=== PATIENT | male | born 1960 | race Caucasian/White ===

== ENCOUNTER → 2022-08-09 07:04 | Outpatient (CLI) | payer OTHER, MEDICAID, SELFPAY ==
[2022-08-09 07:34] LABS: Add Manual Diff / Slide Review NO; Basophils Absolute Auto 100 /uL (0-100); Basophils Percent Auto 1.2 % (0-2); Eosinophils Absolute Auto 100 /uL (0-450); Eosinophils Percent Auto 2.2 % (2-4); Hematocrit 43.1 % (41-53); Hemoglobin 14.5 g/dL (13.5-17.5); Lymphocytes Absolute Auto 1600 /uL (1100-4500); Lymphocytes Percent Auto 25.8 % (25-40); Mean Corpuscular HGB Conc 33.8 % (30-36); Mean Corpuscular Hemoglobin 32.6 PG (26-34); Mean Corpuscular Volume 96.7 fL (80-100); Monocytes Absolute Auto 500 /uL (0-900); Monocytes Percent Auto 8.8 % (3-14); Neutrophils Absolute Auto 3800 /uL (1500-7000); Platelet Count 281 X10^3/uL (150-400); Red Blood Cell Count 4.45 X10^6/uL (4.5-5.9); Red Cell Distribution Width 13.1 % (11.6-14.8); White Blood Cell Count 6.1 X10^3/uL (4.5-11.0)
[2022-08-09 08:27] LABS: Alanine Aminotransferase 35 IU/L (<50); Albumin 4.2 g/dL (3.5-5.0); Albumin Globulin Ratio 1.6 (1.0-2.8); Alkaline Phosphatase 65 U/L (38-126); Aspartate Aminotransferase 35 IU/L (17-59); BUN Creatinine Ratio 20.6 (6-22); Bilirubin Total 1.4 mg/dL (0.2-1.3); Blood Urea Nitrogen 21 mg/dL (9-20); Calcium 9.5 mg/dL (8.4-10.2); Carbon Dioxide 28 mmol/L (22-32); Chloride 101 mmol/L (98-107); Cholesterol 151 mg/dL (140-199); Estimated Glomerular Filt Rate > 60 mL/min (>60); Globulin 2.7 g/dL (1.7-4.1); Glucose 100 mg/dL (80-110); HDL Cholesterol 71 mg/dL (40-60); HEMOLYSIS < 15 (0-50); LDL Cholesterol Calculated 71 mg/dL (<100); Potassium 4.9 mmol/L (3.4-5.1); Sodium 137 mmol/L (137-145); Total Protein 6.9 g/dL (6.3-8.2); Triglycerides 43 mg/dL (35-150)
[2022-08-09 08:57] LABS: Prostate Specific Antigen 0.577 ng/mL (0.10-4.00)
== END ==
PROVIDERS: PCP Family Medicine; Referring Provider Family Medicine; Visit Provider Family Medicine
DX: E78.2 Mixed hyperlipidemia (principal); I10 Essential (primary) hypertension; N40.1 Benign prostatic hyperplasia with lower urinary tract symptoms; N52.01 Erectile dysfunction due to arterial insufficiency; R35.1 Nocturia; Z86.010 Personal history of colon polyps; Z86.79 Personal history of other diseases of the circulatory system
CPT/HCPCS: 36415; 80053; 80061; 84153; 85025

== ENCOUNTER → 2024-08-14 07:03 | Outpatient (CLI) | payer MEDICARE, OTHER, SELFPAY ==
[2024-08-14 07:31] LABS: Add Manual Diff / Slide Review NO; Basophils Absolute Auto 100 /uL (0-100); Basophils Percent Auto 0.9 % (0-2); Eosinophils Absolute Auto 200 /uL (0-450); Eosinophils Percent Auto 2.8 % (2-4); Hematocrit 40.3 % (41-53); Hemoglobin 13.5 g/dL (13.5-17.5); Lymphocytes Absolute Auto 1700 /uL (1100-4500); Lymphocytes Percent Auto 27.9 % (25-40); Mean Corpuscular HGB Conc 33.5 % (30-36); Mean Corpuscular Hemoglobin 32.6 PG (26-34); Mean Corpuscular Volume 97.5 fL (80-100); Monocytes Absolute Auto 500 /uL (0-900); Monocytes Percent Auto 8.8 % (3-14); Neutrophils Absolute Auto 3600 /uL (1500-7000); Neutrophils Percent Auto 59.6 % (50-75); Platelet Count 293 X10^3/uL (150-400); Red Blood Cell Count 4.13 X10^6/uL (4.5-5.9); Red Cell Distribution Width 13.7 % (11.6-14.8)
[2024-08-14 08:16] LABS: Alanine Aminotransferase 33 IU/L (<50); Albumin 4.1 g/dL (3.5-5.0); Albumin Globulin Ratio 1.9 (1.0-2.8); Alkaline Phosphatase 57 U/L (38-126); Aspartate Aminotransferase 40 IU/L (17-59); BUN Creatinine Ratio 18.2 (6-22); Bilirubin Total 0.7 mg/dL (0.2-1.3); Blood Urea Nitrogen 18 mg/dL (9-20); Calcium 9.6 mg/dL (8.4-10.2); Carbon Dioxide 26 mmol/L (22-32); Chloride 106 mmol/L (98-107); Cholesterol 134 mg/dL (140-199); Estimated Glomerular Filt Rate > 60 mL/min (>60); Globulin 2.2 g/dL (1.7-4.1); Glucose 108 mg/dL (80-110); HDL Cholesterol 70 mg/dL (40-60); HEMOLYSIS < 15 (0-50); LDL Cholesterol Calculated 52 mg/dL (<100); Potassium 4.2 mmol/L (3.4-5.1); Sodium 138 mmol/L (137-145); Total Protein 6.3 g/dL (6.3-8.2); Triglycerides 58 mg/dL (35-150)
[2024-08-14 08:40] LABS: Prostate Specific Antigen Scrn 0.809 ng/mL (0.1-4.0)
== END ==
PROVIDERS: PCP Family Medicine; Referring Provider Family Medicine; Visit Provider Family Medicine
DX: Z00.00 Encounter for general adult medical examination without abnormal findings (principal); E78.5 Hyperlipidemia, unspecified; Z12.5 Encounter for screening for malignant neoplasm of prostate; I10 Essential (primary) hypertension; N40.0 Benign prostatic hyperplasia without lower urinary tract symptoms
CPT/HCPCS: 36415; 80053; 80061; 85025; G0103

== ENCOUNTER → 2024-10-06 07:30 | Outpatient (CLI) | payer MEDICARE, OTHER, SELFPAY ==
--- NOTE | 2024-10-06 07:32 | DI.ECHO.S_ITS ---
[facility]---------+ [facility] : : [id number] : [place] [address] : : [id number] : : Phone: [phone] Echocardiogram Report + + :Name: MIRNA GOVEA Study Date: 10/06/2024 Height: 73 in : :[facility] ReadingLocation: Weight: 210 lb : : Gender: Male BSA: 2.2 m2 : :: 1960 Age: 64 yrs BP: 151/95 mmHg: :Reason For Study: CHEST PAIN : :Ordering Physician: YA, : :JOANNE Cordova Performed By: Libia Hobbs : :Referring: JOANNE WOODS : + + Interpretation Summary The ejection fraction is estimated to be 60-65%. Diastolic parameters suggest probable normal left ventricular diastolic function and normal filling pressures. The right ventricle is normal in size and function. There is mild mitral regurgitation. There is mild tricuspid regurgitation. The right ventricular systolic pressure is estimated to be at least 26 mmHg based on an estimated right atrial pressure of 3 mm Hg. The ascending aorta is mildly enlarged, 4.2 cm. Procedure: A two-dimensional transthoracic echocardiogram with color flow and Doppler was performed. The study quality was technically adequate. There is no prior echocardiogram noted for this patient. The patient was in sinus rhythm with heart rates between 62-68 bpm during the exam. Left Ventricle: The left ventricle is normal in size and wall thickness. The ejection fraction is estimated to be 60-65%. Diastolic parameters suggest probable normal left ventricular diastolic function and normal filling pressures. Right Ventricle: The right ventricle is normal in size and function. Atria: The left atrial size is normal. Right atrial size is normal. There is no Doppler evidence for an interatrial shunt. Mitral Valve: The mitral valve leaflets appear to open well. The mitral valve leaflets appear mildly thickened, but open well. There is mild mitral regurgitation. Aortic Valve: The aortic valve is trileaflet. The aortic valve opens well. There is no aortic valve stenosis. There is trace aortic regurgitation. Tricuspid Valve: The tricuspid valve leaflets are thin and pliable. There is mild tricuspid regurgitation. The right ventricular systolic pressure is estimated to be at least 26 mmHg based on an estimated right atrial pressure of 3 mm Hg. Pulmonic Valve: The pulmonic valve is not well visualized. There is mild pulmonic regurgitation. Great Vessels: The aortic root is normal size. The ascending aorta is mildly enlarged. The IVC is of normal diameter and collapses greater than 50% with a sniff. This suggests a low right atrial pressure of 3 mm Hg. Pericardium/ Pleura There is no pericardial effusion. There is no pleural effusion. MMode/2D Measurements & Calculations LVIDd: 5.7 cm LVOT diam: 2.2 cm LVIDs: 4.0 cm Ao root diam: 4.2 cm FS: 30.1 % asc Aorta Diam: 4.2 cm EPSS: 0.67 cm Ao Arch Diam (Prox Trans): 3.1 cm IVSd: 1.3 cm LVPWd: 1.0 cm LV cormier. diameter/BSA (cm/m^2): 2.6 LV sys. diameter/BSA (cm/m^2): 1.8 LA A2 area: 21.7 cm2 RA long axis: 6.2 cm LA A4 area: 19.5 cm2 RA area: 19.1 cm2 LA length (vol): 5.7 cm RA vol: 49.7 ml LA vol: 63.1 ml RA : 22.6 ml/m2 LA vol index: 28.7 ml/m2 IVC diam: 1.9 cm RVD1 (basal): 3.9 cm RVD2 (mid): 2.9 cm TAPSE: 1.9 cm Doppler Measurements & Calculations Ao V2 max: 149.6 cm/sec LVOT Max Miguel A: 136.0 cm/sec Ao V2 mean: 108.0 cm/sec LV V1 max P.4 mmHg Ao max P.0 mmHg LV V1 VTI: 26.4 cm Ao mean P.1 mmHg REGULO(I,D): 3.1 cm2 Ao V2 VTI: 32.1 cm REGULO(V,D): 3.4 cm2 sev ratio: 0.82 REGULO indexed to BSA (cm^2/m^2): 1.4 AI P1/2t: 951.6 msec AI dec slope: 140.9 cm/sec2 MV E max miguel a: 63.1 cm/sec TR max miguel a: 242.0 cm/sec MV A max miguel a: 49.6 cm/sec TR max P.4 mmHg MV E/A: 1.3 PA V2 max: 88.8 cm/sec Med Peak E' Miguel A: 7.0 cm/sec PA V2 mean: 63.1 cm/sec E/E' med: 9.0 PA mean P.8 mmHg Lat Peak E' Miguel A: 10.0 cm/sec PA pr(Accel): 31.5 mmHg E/E' lat: 6.3 E/e' average: 7.6 MV dec time: 0.19 sec SV(LVOT): 99.7 ml Reading Physician:05:14 PM
--- NOTE | 2024-10-07 07:37 | DI.NM.S_ITS ---
DATE OF SERVICE: 10/06/2024 NUCLEAR CARDIOLOGY MYOCARDIAL PERFUSION STUDY PROCEDURE: Exercise treadmill stress and rest myocardial perfusion imaging with gating to assess ejection fraction and regional wall motion. ORDERING PROVIDER: Joanne Woods M.D. INDICATIONS: The patient is a 64-year-old male with known modest coronary artery disease with recent sporadic exertional chest discomfort. CARDIAC STRESS: The patient was able to exercise for 10 minutes 59 seconds on a standard Fred protocol, but reported that he could have gone farther, suggesting excellent exercise capacity with an JATINDER of at least -47%. He had a normal heart rate response to exercise, achieving a maximum heart rate of 160 bpm (103% of his predicted maximum) and a mild hypertensive blood pressure response with a resting blood pressure of 138/84 increasing to a maximum of 205/94. He had no chest discomfort or any anginal symptoms. His resting ECG shows sinus rhythm with significant inferolateral T-wave inversions and mild ST-segment abnormality. With stress, the T-wave inversions become more prominent with associated 3-4 mm of downsloping STdepression in the lateral leads that fairly promptly improves in early recovery butremains mildly abnormal. There were no arrhythmias. At 9 minutes of exercise at a heart rate of 149 bpm, 25.4 mCi of technetium- 99m Myoview was injected and he was imaged 15 minutes later using a gated SPECT acquisition protocol. Earlier in the day while at rest, he was injected with 12.7 mCi of technetium-99m Myoview and imaged 15 minutes later, again using a gated SPECT acquisition protocol. FINDINGS: 1. Raw Data: There is good myocardial tracer uptake. The lung/heart ratio is normal at 0.30 with a normal TID ratio of 0.96. 2. Quantitated gated SPECT: Post-stress ejection fraction is 75% without any focal wall motion abnormality. The resting ejection fraction is 68% with a mildly increased left ventricular end-diastolic volume of 153 mL. 3. Myocardial perfusion imaging: Post-stress supine images show a normal, uniform pattern of tracer activity without any perfusion defects, supported by normal perfusion imaging in the prone position. The resting images show an identical perfusion pattern without any areas of improvement. IMPRESSION: 1. Normal myocardial perfusion study although with significant ECG abnormalities at rest with accentuation with stress. 2. No perfusion defects to suggest myocardial ischemia or previous myocardial infarction. 3. Normal left ventricular systolic function with mildly increased left ventricular volumes. 4. Excellent exercise capacity with a mild hypertensive blood pressure response but no angina or arrhythmias. There was significant ST depression with exercise with accentuation of baseline T-wave inversions but the resting baseline ECG abnormalities make this nonspecific. Clinical correlation is recommended. Rogelio Cho - JOHANA/brianna/CT doc#: [id number]/job#: [id number] dd: 10/06/2024 17:07:00 dt: 10/06/2024 17:21:00 DICTATING MD/COPIES TO: Abdoulaye Mata MD; Joanne Woods M.D. COPIES MNE: ANGELICA;
== END ==
PROVIDERS: PCP Family Medicine; Referring Provider Internal Medicine Cardiovascular Disease; Visit Provider Internal Medicine Cardiovascular Disease
DX: I08.1 Rheumatic disorders of both mitral and tricuspid valves (principal); I25.10 Atherosclerotic heart disease of native coronary artery without angina pectoris
CPT/HCPCS: 78452; 93017; 93306; A9502